=== PATIENT | male | born 1950 | race Hispanic/Latino ===

== ENCOUNTER 2018-07-20 06:18 | Day surgery (SDC) | payer MEDICARE ==
[2018-07-20 06:33] VITALS: BMI 24.3
[2018-07-20] MEDS ORDERED: Lactated Ringer's 1,000 ML IV ONE (07:03)
[2018-07-20] MEDS ORDERED: Bupivacaine HCl 0.5% PF (30 ml) Inj ONE (07:28)
[2018-07-20] MEDS ORDERED: ceFAZolin IV 1 gm in Dextrose 2 GM/100 ML BAG IVPB ONE (07:28)
[2018-07-20] MEDS ORDERED: Lidocaine 1% MPF (30 ml) Inj ONE (07:35)
[2018-07-20] MEDS ORDERED: Succinylcholine 200 mg/10 ml Inj IV ONE (07:36)
[2018-07-20] MEDS ORDERED: Propofol 10 mg/ml Inj (20 ML) ONE (07:36)
[2018-07-20] MEDS ORDERED: Rocuronium 10 mg/ml (5 ml) ONE (07:36)
[2018-07-20] MEDS ORDERED: Sevoflurane - Inhalation Anesthetic Liq (250 ml) ONE (07:37)
[2018-07-20 08:15] LABS: INR 1.2
[2018-07-20] MEDS ORDERED: Phenylephrine 10 mg/ml Inj ONE (08:15)
[2018-07-20] MEDS ORDERED: ePHEDrine 50 mg/ml Inj ONE (08:17)
[2018-07-20 08:18] LABS: PARTIAL THROMBOPLASTIN TIME 33.6 Seconds (25.6-37.1)
[2018-07-20] MEDS ORDERED: Iohexol 240 200 ML ONE (08:25)
[2018-07-20] MEDS ORDERED: Neostigmine 1:1000 (1 mg/ml) Inj ONE (09:19)
[2018-07-20] MEDS ORDERED: HYDROmorphone 1 mg/ml ISec IVP PRN (09:46)
--- NOTE | 2018-07-20 09:59 | RAD ---
Date of service: 07/20/2018 HISTORY: verify catheter placement COMPARISON: None available. FINDINGS: BOWEL: There is a nonobstructive bowel gas pattern in the visualized abdomen. The examination focuses on the pelvis as there is some concern over Meade catheter placement. Meade catheter is identified placed terminating at the region of the urinary bladder with iodinated contrast material surrounding the inflated bulb. This is likely within the urinary bladder is no extravasated iodinated contrast material is identified in the urinary bladder. Marked irregularity is seen in the justice of the urinary bladder and consideration of follow-up CT is advised for this could reflect infectious or inflammatory process. No intra peritoneal contrast collection is identified. BONES: Normal. OTHER FINDINGS: None. IMPRESSION: Likely intracystic location Meade catheter terminus. Follow-up CT is advised given irregular margins of the urinary bladder justice. Infectious or inflammatory process is not excluded at the urinary bladder. The findings have been reviewed and discussed with Dr. Knowles with written down read back verification 07/20/2018.
[2018-07-20] MEDS ORDERED: Lactated Ringer's 1,000 ML IV SCH (10:00)
--- NOTE | 2018-07-20 10:02 | CP.SDSHP ---
Same Day Surgery H & P - History Proposed Procedure: Left inguinal hernia repair, possible right Pre-Op Diagnosis: Left inguinal hernia - Previous Medical/Surgical History Cardiac: Hypertension, Arrhythmia Neuro: TIA/CVA Pain: 2.Mild Pain Previous Surgical History: Denies - Allergies Allergies: Allergies No Known Allergies Allergy (Verified 12/14/13 07:42) - Physical Exam Vital Signs: Vital Signs 07/20/18 07/20/18 06:43 06:46 Temperature 98.2 F Pulse Rate 69 69 Respiratory 20 Rate Blood Pressure 148/90 O2 Sat by Pulse 100 Oximetry - {Optional Preform as Required} Abdomen: WNL - Impression Impression: Left inguinal hernia, possible right Pt. Evaluated Today:Candidate for Anesthesia & Procedure: Yes - Date & Time Date: 07/20/18 Time: 07:30 Short Stay Discharge - Short Stay Discharge Admitting Diagnosis/Reason for Visit: K4 Disposition: HOME/ ROUTINE Medications: Cephalexin [Keflex] 500 mg PO BID #4 capsule Referrals: Lemuel Alberts MD [Primary Care Provider] - Lemuel Knowles MD [Staff Provider] - Dakota Marley MD [Medical Doctor] - Instructions: How to Care for Your Johnson Catheter, Male, Johnson Catheter, Male Additional Instructions (Diet, Activity): Please follow up with Dr. Knowles in the office in 7 days Please follow up with the urologist in the office in 7 days You are being discharged with a urethral (johnson) catheter in place, Johnson is to stay in place until removed by Urologist
[2018-07-20 12:46] VITALS: RESP 18
[2018-07-20 15:45] VITALS: BP 110/65; PULSE 81; TEMP 98; O2SAT 98
--- NOTE | 2018-07-20 20:40 | OP ---
Copied To: Dakota Marley MD Attending MD: Dakota Marley MD PROCEDURE DATE: 07/20/2018 PREOPERATIVE DIAGNOSIS: Inability to pass Meade catheter. POSTOPERATIVE DIAGNOSIS: Inability to pass Meade catheter. PROCEDURE PERFORMED: Cystoscopy with insertion of a Meade catheter. DESCRIPTION OF PROCEDURE: On the operating room table, the patient was placed, he was in dorsal lithotomy position, in general anesthesia, he was being prepped for a hernia repair, but could not get the Meade in. I made an attempt, could not get the Meade in as well. At this point, decided to use it under direct vision with a cystoscope. At the proximal urethra, there was noted a left and right false passage and in the center, there was a small opening, which was a conduit to the bladder. I was able under direct vision to get into the bladder, noticing that there was quite a large obstructing prostate on lateral lobes and middle lobe as well. Once inside the bladder, I then deployed a sensor wire as a guide. I removed the cystoscope and inserted a #22 Logan catheter over that guidewire into the bladder. The urinal flow was clear and we will connect the catheter to a leg bag drainage anticipating to leave that in place for at least a week. Dakota Marley MD
== END 2018-07-20 14:15 | disposition home or self-care (01) ==
LOC: H.OPSURG 06:18
PROVIDERS: ATTEND Surgery
DX: K40.30 Unilateral inguinal hernia, with obstruction, without gangrene, not specified as recurrent (principal); I48.91 Unspecified atrial fibrillation; I10 Essential (primary) hypertension
CPT/HCPCS: 36415; 51703; 74018; 85610; 85730; J0330; J0690; J2001; J2370; J2405; J2704; J2710; J2765; J3010; J7120; Q9966